=== PATIENT | male | born 1995 | race Caucasian/White ===

== ENCOUNTER 2019-06-09 15:11 | Emergency (ER) | payer BC ==
[~2019-06-09] VITALS: Ht 185.4 cm; Wt 81.8 kg
[2019-06-09 15:19] VITALS: BP 136/87; TEMP 97.4
[2019-06-09] MEDS ORDERED: NORCO 325 MG-51 TAB PO (15:56)
[2019-06-09] MEDS ORDERED: CRUTCHES MC (16:18)
[2019-06-09 16:24] VITALS: PULSE 104
== END 2019-06-09 16:24 | disposition home or self-care (01) ==
LOC: COL.ER 15:11
DX: S82.301A Unspecified fracture of lower end of right tibia, initial encounter for closed fracture (principal); Z90.89 Acquired absence of other organs; W50.0XXA Accidental hit or strike by another person, initial encounter; Y92.830 Public park as the place of occurrence of the external cause; Y93.66 Activity, soccer